=== PATIENT | male | born 1970 | race Two or more races ===

== ENCOUNTER 2024-10-22 21:21 | Emergency (ER) | payer BC, SELFPAY ==
--- NOTE | ~2024-10-22 | XR_ITS ---
CLINICAL HISTORY: cough 2 view chest x-ray Comparison: None Findings: No consolidation or effusion. Heart size is normal. Old right mid clavicle fracture. IMPRESSION: No consolidation. This document has been electronically signed by: Ibeth Montes De Oca MD on 10/22/2024 22:11:05
[2024-10-22 21:30] VITALS: BP 120/78; PULSE 74; RESP 20; TEMP 36.2; O2SAT 97; BMI 30.7
--- NOTE | 2024-10-22 21:59 | ED_ITS ---
HPI - URI/Sore Throat General Chief Complaint: Upper Respiratory Symptoms Stated Complaint: sob Time Seen by Provider: 10/22/24 21:56 Source: patient Mode of arrival: ambulatory Limitations: no limitations History of Present Illness ED Provider: HPI Narrative: Patient's history of asthma been working in a [employer] work been having cough with mucopurulent phlegm for last 1 week was seen at urgent care center on 10/14 prescribe prednisone and inhaler which is using it but not getting better cough is worse in the nighttime Related Data Previous Rx's ?Medication ?Instructions ?Recorded cefuroxime axetil 500 mg tablet 500 mg PO BID 7 days #14 tabs 10/23/24 prednisone 20 mg tablet 40 mg (2 x 20 mg) PO DAILY #10 tabs 10/23/24 Allergies Allergy/AdvReac Type Severity Reaction Status Date / Time acetaminophen [From Percocet] Allergy Hives Verified 10/22/24 21:33 oxycodone [From Percocet] Allergy Hives Verified 10/22/24 21:33 Review of Systems Review of Systems: Yes all other systems are reviewed and are negative [facility] Social History Social History Smoked in Last 30 Days: No Use of substances other than those prescribed or required for medical reasons: No Advance Directives: No Advance Directives Information Provided: No Physical Exam Vital Signs: Vital Signs: Last Vital Signs Temp 98.5 F 10/23/24 00:33 Pulse 88 10/23/24 00:33 Resp 16 10/23/24 00:33 BP 116/69 10/23/24 00:33 Pulse Ox 93 10/23/24 00:33 O2 Del Method Room Air 10/23/24 00:33 BMI result Body Mass Index 30.7 Appearance: Alert. Oriented X3. No acute distress. Eyes: PERRLA, No Nystagmus ENT: Pharynx normal. Oral Mucosa moist Neck: Normal inspection. Neck supple. CVS: Normal heart rate and rhythm. Pulses normal. Respiratory: No respiratory distress. Equal air entry bilateral, prolonged expiratory Abdomen: Soft and nontender. Bowel sounds are present, no mass palpable, no CVA tenderness Skin: Skin warm and dry. Normal skin color. Normal skin turgor. Extremities: No lower extremity edema. No calf tenderness Neuro: Oriented X 3. No motor deficit. No sensory deficit.No cerebellar signs , cranial nerves II-XII intact Medications Administered Discontinued Medications Generic Name Dose Route Start Last Admin Trade Name Wally PRN Reason Stop Dose Admin Cefuroxime Axetil 500 mg 10/22/24 22:42 10/22/24 23:03 Cefuroxime Axetil 500 Mg Tablet PO 10/22/24 22:43 500 mg ONCE ONE Administration Albuterol Sulfate 5 mg/ 0 mg 10/22/24 22:42 10/22/24 23:17 Albuterol/Ipratropium 3 ml INHALE 10/22/24 22:43 1 each ONCE ONE Administration Prednisone 60 mg 10/22/24 22:42 10/22/24 23:03 Prednisone 20 Mg Tablet PO 10/22/24 22:43 60 mg ONCE ONE Administration Medical Decision Making Medical Decision Making [facility] Narrative: Patient has acute bronchitis will prescribe prednisone advised to continue albuterol treatment and will give prescription for Ceftin Lab Data [facility] Lab Attestation statement: I reviewed the patient's lab results. Labs: Lab Results 10/22/24 Range/Units 21:35 Influenza Type A (PCR) NEGATIVE (Negative) Influenza Type B (PCR) NEGATIVE (Negative) RSV RNA Qual (PCR) NEGATIVE (Negative) SARS-CoV-2 RNA (RT-PCR) NEGATIVE (Negative) Independent Interpretation I performed an independent interpretation of an: Plain X-Ray Interpretation: No acute Discharge Plan Discharge Clinical Impression: Bronchitis Patient Disposition: Home, Self-Care Instructions: Acute Bronchitis (ED) Additional Instructions: Social distancing as advised use mask at work Prednisone and antibiotic as prescribed Continue to use inhaler every 4 hours as needed Follow with PCP Prescriptions: New prednisone 20 mg tablet 40 mg PO DAILY Qty: 10 0RF cefuroxime axetil 500 mg tablet 500 mg PO BID 7 Days Qty: 14 0RF Stand Alone Forms: Work/School Release Interventions: ED Discharge Assessment Last Done: 10/23/24 00:33 Discharge Date/Time: 10/23/24 00:34 Print Language: Amharic
[2024-10-22 22:18] LABS: Influenza A PCR NEGATIVE (Negative); Influenza B PCR NEGATIVE (Negative); Resp Syncy Virus RNA Qual PCR NEGATIVE (Negative); SARS COV2 PCR INHOUSE NEGATIVE (Negative)
[2024-10-22] MEDS: predniSONE 20 MG TABLET 60 MG PO (23:03)
[2024-10-22] MEDS: cefuroxime axetiL 500 MG TABLET PO (23:03)
[2024-10-22] MEDS: Albuterol Sulfate 5 MG, Albuterol/Iprat 2.5/0.5MG 3 ML 3 ML INHALE (23:17)
[2024-10-22 23:41] VITALS: BP 116/69; PULSE 88; RESP 16; TEMP 36.9; O2SAT 93
[2024-10-23 00:33] VITALS: BP 116/69; PULSE 88; RESP 16; TEMP 36.9; O2SAT 93
== END 2024-10-23 00:34 | disposition home or self-care (01) ==
PROVIDERS: Emergency Provider Internal Medicine
DX: J40 Bronchitis, not specified as acute or chronic (principal); R06.02 Shortness of breath; R05.9 Cough, unspecified; Z03.818 Encounter for observation for suspected exposure to other biological agents ruled out
CPT/HCPCS: 0241U; 71046; 99284

== ENCOUNTER → 2024-10-22 21:33 | Outpatient (BNV) | payer BC, SELFPAY | PROVIDERS: Emergency Provider Internal Medicine; Visit Provider Radiology Diagnostic Radiology | DX: R05.9 Cough, unspecified (principal) | CPT/HCPCS: 71046 ==